=== PATIENT | female | born 1935 | race Caucasian/White ===

== ENCOUNTER 2017-04-15 09:09 | Emergency (ER) | payer MEDICARE, OTHER ==
--- NOTE | 2017-04-15 09:34 | EDM.PDOC ---
ED HPI GENERAL MEDICAL PROBLEM - General Chief Complaint: Lower Extremity Injury/Pain Stated Complaint: right foot pain Time Seen by Provider: 04/15/17 09:24 - History of Present Illness INITIAL COMMENTS - FREE TEXT/NARRATIVE: HISTORY AND PHYSICAL: History of present illness: The patient is an 82-year-old female who follows with a provider in [place] and presents with complaints of right lateral foot pain that started last evening at 5 PM when she rolled her foot at a restaurant. Patient states she had a normal day earlier before the event and since that time she has had no other systemic complaints of fever chills chest pain or shortness of breath no dizziness. Patient states she did not feel lightheaded or dizzy when this occurred she just misstepped and rolled the foot. She has no ankle pain or proximal leg knee or hip pain. She did not fall to the ground and medially just rolled the foot and then grabbed onto the chair. She has not taken anything for pain and she has not iced it. She says she had an injury about 8 years ago in that foot and she's concerned that she reinjured it. He has no neurosensory changes in that foot or leg. Review of systems: As per history of present illness and below otherwise all systems reviewed and negative. Past medical history: As per history of present illness and as reviewed below otherwise noncontributory. Surgical history: As per history of present illness and as reviewed below otherwise noncontributory. Social history: No reported history of drug or alcohol abuse. Family history: As per history of present illness and as reviewed below otherwise noncontributory. Physical exam: Gen.: Thin female who is nontoxic and moves easily in the ED without distress. She ambulated in without assistance. HEENT: Atraumatic, normocephalic, negative for conjunctival pallor or scleral icterus, mucous membranes moist, throat clear, neck supple, nontender, trachea midline. Lungs: Clear to auscultation, breath sounds equal bilaterally, chest nontender. Heart: S1S2, regular rate and rhythm no overt murmurs Abdomen: Soft, nondistended, nontender. NABS Pelvis: Stable nontender. No lateral hip tenderness on the right Genitourinary: Deferred. Rectal: Deferred. Extremities: Atraumatic with full range of motion of all extremities with the exception of the right foot. At the right foot laterally there is ecchymosis and some soft tissue swelling at the cuboid bone areas but there is no specific fifth metatarsal tenderness. There is no ankle tenderness or swelling and no bony deformities there or proximally at the leg knee or hip. Distally neurovascular is intact in the toes are intact without tenderness defects or deformities. The legs are, negative for cords or calf pain. Neurovascular unremarkable. Neuro: Awake, alert, oriented. Cranial nerves II through XII unremarkable. Cerebellum unremarkable. Motor and sensory unremarkable throughout. Exam nonfocal. Diagnostics: X-ray right foot Therapeutics: Ortho boot Impression: Foot contusion right Definitive disposition and diagnosis as appropriate pending reevaluation and review of above. - Related Data Allergies Allergy/AdvReac Type Severity Reaction Status Date / Time azithromycin [From Zithromax] Allergy Swelling Verified 11/15/14 09:18 Home Meds: Home Meds Hydrocodone/Acetaminophen [Hydrocodon-Acetaminophn 10-325] 1 tab PO Q4H PRN 10/20 [History] Social & Family History - Tobacco Use Smoking Status *Q: Current Every Day Smoker Years of Tobacco use: 67 Used Tobacco, but Quit: No Second Hand Smoke Exposure: Yes - Alcohol Use Days Per Week of Alcohol Use: 0 - Recreational Drug Use Recreational Drug Use: No Drug Use in Last 12 Months: No Review of Systems - Review of Systems Review Of Systems: ROS reveals no pertinent complaints other than HPI. ED EXAM, GENERAL - Physical Exam Exam: See Below (See dictation) Course - Vital Signs Last Recorded V/S: Last Vital Signs Temp 35.9 C 04/15/17 09:22 Pulse 75 04/15/17 09:22 Resp 18 04/15/17 09:22 BP 118/35 L 04/15/17 09:22 Pulse Ox 97 04/15/17 09:22 - Orders/Labs/Meds Orders: Active Orders 24 hr Category Date Time Status DME for Discharge [COMM] Stat Oth 04/15/17 10:01 Ordered Departure - Departure Time of Disposition: 10:04 Disposition: Home, Self-Care 01 Condition: Good Clinical Impression: Right foot injury Qualifiers: Encounter type: initial encounter Qualified Code(s): S99.921A - Unspecified injury of right foot, initial encounter Foot contusion Qualifiers: Encounter type: initial encounter Laterality: right Qualified Code(s): S90.31XA - Contusion of right foot, initial encounter - Discharge Information Referrals: PCP,None [Primary Care Provider] - Forms: ED Department Discharge Additional Instructions: The following information is given to patients seen in the emergency department who are being discharged to home. This information is to outline your options for follow-up care. We provide all patients seen in our emergency department with a follow-up referral. The need for follow-up, as well as the timing and circumstances, are variable depending upon the specifics of your emergency department visit. If you don't have a primary care physician on staff, we will provide you with a referral. We always advise you to contact your personal physician following an emergency department visit to inform them of the circumstance of the visit and for follow-up with them and/or the need for any referrals to a consulting specialist. The emergency department will also refer you to a specialist when appropriate. This referral assures that you have the opportunity for followup care with a specialist. All of these measure are taken in an effort to provide you with optimal care, which includes your followup. Under all circumstances we always encourage you to contact your private physician who remains a resource for coordinating your care. When calling for followup care, please make the office aware that this follow-up is from your recent emergency room visit. If for any reason you are refused follow-up, please contact the [facility] emergency department at and ask to speak to the emergency department charge nurse. [facility]- Podiatry [address] [place] [id number] Fax: [phone] Dr Yfn Erickson [address] [place] [phone] Please ice and elevate the area and call and contact one of our office rep or a office rep at home for further care and evaluation. Return to ER as needed and as discussed. Try to not weight-bear until you are followed up by a 4 h youth development specialist. Use [id number] medications for pain. Please wear the ortho boot that you have been given until you are followed up either specialist. Please loosen or remove at sleep times - My Orders Last 24 Hours: My Active Orders 04/15/17 10:01 DME for Discharge [COMM] Stat - Assessment/Plan Last 24 Hours: My Active Orders 04/15/17 10:01 DME for Discharge [COMM] Stat
--- NOTE | 2017-04-15 09:59 | CR ---
EXAMINATION: Right foot HISTORY: Trauma COMPARISON: None TECHNIQUE: 3 views FINDINGS: There is no acute osseous abnormality, dislocation, or fracture.. The osseous structures ap pear osteopenic. There is an old healed fifth metatarsal injury. Joint spaces appear grossly preserve d. There is a mildly prominent anterior talar spur. IMPRESSION: 1. Osteopenia without an acute osseous abnormality demonstrated.
[2017-04-15 10:16] VITALS: BP 116/33
== END 2017-04-15 10:18 | disposition home or self-care (01) ==
LOC: MW.ED 09:09
DX: S90.31XA Contusion of right foot, initial encounter (principal); F17.210 Nicotine dependence, cigarettes, uncomplicated; Z88.1 Allergy status to other antibiotic agents; X50.9XXA Other and unspecified overexertion or strenuous movements or postures, initial encounter; Y92.511 Restaurant or cafe as the place of occurrence of the external cause
CPT/HCPCS: 73630-26-RT; 73630-RT; 99283